=== PATIENT | male | born 1990 | race Two or more races ===

== ENCOUNTER 2024-08-30 09:53 | Emergency (ER) | payer MEDICAID, SELFPAY ==
[2024-08-30 10:16] VITALS: BP 154/93; PULSE 68; RESP 17; TEMP 36.6; O2SAT 98; BMI 23.6
--- NOTE | 2024-08-30 10:31 | EDNOTE_ITS ---
ED Ear RME/HPI General Chief complaint: Ear Stated complaint: RIGHT EAR PAIN X3 DAYS Time Seen by Provider: 08/30/24 10:00 Arrival date/time: 08/30/24 09:53 33-year-old male presents to the emergency department complains of right ear pain right ear canal discharge ongoing for the last couple of days patient repo rts muffled hearing from right ear Limitations: no limitations Related Data Previous Rx's ?Medication ?Instructions ?Recorded clotrimazole 1 % topical solution 1 applic topical BID 10 days #30 mL 08/30/24 [id number]-bkufbijoc 3.5 4 drp otic (ear) Q8H 7 days #10 mL 08/30/24 mg/mL-10,000 unit/mL-1 % ear solution Allergies Allergy/AdvReac Type Severity Reaction Status Date / Time No Known Allergies Allergy Verified 08/30/24 09:56 Review of Systems Review of Systems Systems Reviewed: All systems reviewed, normal except as documented Constitutional Constitutional: Reports system reviewed and no additional complaints, except as documented, Denies fever(s) and Denies headache(s) Eyes Eyes: Reports system reviewed and no additional complaints, except as documented and Denies blurry vision ENT Ears, Nose, Mouth, and Throat: Reports system reviewed and no additional complaints, except as documented, Reports ear discharge, Reports otalgia, Denies headache(s), Denies nasal congestion and Denies nasal discharge Cardiovascular Cardiovascular: Reports system reviewed and no additional complaints, except as documented, Denies chest pain and Denies dyspnea Respiratory Respiratory: Reports system reviewed and no additional complaints, except as documented, Denies chest congestion, Denies cough and Denies dyspnea Gastrointestinal Gastrointestinal: Reports system reviewed and no additional complaints, except as documented and Denies abdominal pain Integumentary/Breasts Skin/Breast: Reports system reviewed and no additional complaints, except as documented and Denies rash Neurologic Neurologic: Reports system reviewed and no additional complaints, except as documented, Reports as per HPI and Denies headache(s) Past Medical History Social History SMOKING STATUS: Never smoker ED Exam General Limitations: Present no limitations General appearance: Present alert and in no apparent distress Head Head exam: Present atraumatic Eye Eye exam: Present normal appearance, PERRL and EOMI ENT ENT exam: Present mucous membranes moist Expanded ENT Exam TM/Canal exam: Right TM: erythema, bulging, cerumen impaction, canal discharge and canal tenderness Neck Neck exam: Present normal inspection, full ROM and trachea midline Chest Chest inspection: Present normal inspection and symmetric chest wall rise Respiratory Respiratory exam: Present normal lung sounds bilaterally Cardiovascular Cardiovascular exam: Present regular rate, normal rhythm and normal heart sounds Abdominal Exam Abdominal exam: Present soft and normal bowel sounds Extremities Exam Extremities exam: Present normal inspection and full ROM Back Exam Back exam: Present normal inspection and full ROM Neurological Exam Neurological exam: Present alert, oriented X3 and CN II-XII intact Psychiatric Psychiatric exam: Present normal affect and normal mood Skin Skin exam: Present warm, dry, intact and normal color Course Quality Measures none Orders Category Date Time Status ED Ear Irrigation X1 Care 08/30/24 10:35 Active Vital Signs Vital signs: Vital Signs Temperature 97.9 F 08/30/24 10:16 Pulse Rate 68 08/30/24 10:16 Respiratory Rate 17 08/30/24 10:16 Blood Pressure 154/93 H 08/30/24 10:16 Pulse Oximetry (%) 98 08/30/24 10:16 Oxygen Delivery Method Room Air 08/30/24 10:16 o2 sat 98% r.a. wnl Procedures -ED FB Removal Ear Location: ear canal (R) Foreign Body Suspected: organic matter TM intact pre-procedure: unable to visualize If Insect Suspected: ear canal instilled with other Foreign Body Removed: yes Foreign Body Removal Technique: irrigation Patient Tolerated Procedure: well Complications: none Ear Patient data External records reviewed:: None Clinical information provided by:: patient Social determinants that could affect healthcare access:: none Patient has the following chronic illnesses:: None How is presenting disease/condition affected by chronic disease/condition?: no chronic disease Evaluation data The following diagnostics were reviewed and interpreted by me:: other (specify) Lab and/or radiology exams considered but not ordered:: N/A Interpretation Summary: N/A Medications / Prescriptions Medications or Prescriptions considered but not ordered:: Given Medication administrations:: Given Rx Consultations Consultation(s) initiated? (list below): No Diagnosis Most likely diagnosis given after review of the tests above:: Otitis externa, cerumen impaction Admission Indicated Admission indicated?: not indicated Admission Request Was there a request for admission?: No Disposition Plan Disposition Plan: Discharge Discharge Attestation Discharge Attestation: The patient and all family members were given an opportunity to ask questions and understood the discharge instructions. Discharge instructions specifically effects, indications for sooner follow up or return to the emergency department, and the expected course of current diagnosis. Patient condition: Stable Medical Decision Making MDM Narrative MDM Narrative: 33-year-old male presents to the emergency department complains of right ear pain right ear canal discharge ongoing for the last couple of days patient reports muffled hearing from right ear On exam patient appears to have cerumen impaction possible foreign body in the right ear Right ear is irrigated patient does have foreign body which is removed looks like a piece of paper cloth Concerned that perhaps patient may have a fungal infection versus an otitis externa Patient was treated with Cortisporin as well as clotrimazole drops Patient instructed to follow-up with specialist Differential Diagnosis Differential Diagnosis: Otitis media, otitis externa, fungal infection ear, cerumen impaction Medical Records Medical records reviewed: Yes I reviewed the patient's medical records. Discharge Plan Plan Patient Disposition: HOME (Self Care) Disposition Comment: Stable Prescriptions/Referrals Prescriptions/Med Rec: New ojgiipys-osdxgxymx-MS 3.5-10,000-1 mg/mL-unit/mL-% solution 4 drp otic (ear) Q8H 7 Days Qty: 10 0RF clotrimazole 1 % solution 1 applic topical BID 10 Days Qty: 30 0RF Problem List Clinical Impression: Otitis externa Patient/Caregiver Discharge Instructions Education Materials: ED External Ear Infection (Adult) Additional Instructions: Please follow up with your primary care doctor in the next 24-48hrs for any worsening symptoms return here immediately Print Language: Greek Stand Alone Forms: Adrienne Award Info., Patient Portal Info Letter ALONZO/ALTAGRACIA Supervising Physician ALONZO/ALTAGRACIA Supervising Physician: Dr. Wright
== END 2024-08-30 10:37 | disposition home or self-care (01) ==
PROVIDERS: Emergency Provider Emergency Medicine
DX: H60.91 Unspecified otitis externa, right ear (principal)
CPT/HCPCS: 69200; 99283